=== PATIENT | female | born 1990 | race African-American/Black ===

== ENCOUNTER 2017-03-01 05:30 | Emergency (ER) | payer OTHER, MEDICAID ==
[~2017-03-01] VITALS: Ht 154.9 cm; Wt 65.0 kg
[2017-03-01 05:34] VITALS: BP 133/74; PULSE 83; RESP 16; TEMP 98.2; O2SAT 100
[2017-03-01] MEDS ORDERED: SODIUM CHLOR 0.9% 1000 ML INJ 1,000 ML IV SCH (05:56)
[2017-03-01] MEDS ORDERED: ONDANSETRON HCL 4 MG/2 ML VIAL IVP ONE (06:00)
[2017-03-01] MEDS ORDERED: MORPHINE SULFATE 4 MG/ML INJ IV PUSH ONE ×2 (06:00→07:30)
[2017-03-01] MEDS ORDERED: SODIUM CHLORIDE 0.9% FLUSH 10 ML FLUSH IV FLUSH PRN (06:00)
--- NOTE | 2017-03-01 06:00 | PD ---
HPI Chief Complaint: Abdominal Pain Time Seen by Provider: 05:47 Travel History International Travel<30 days: No Contact w/Intl Traveler<30days: No Traveled to known affect area: No History of Present Illness HPI 26-year-old female complains of abdominal pain with nausea vomiting. Patient states the symptoms started last night. Patient states the pain is severe pain cramping pain localized to the lower abdomen. Patient denies any pain radiation. Patient states that she has nausea vomiting with the pain. Patient denies any fever. Patient denies any dysuria or frequency. Patient denies any vaginal discharge or bleeding. Patient status post gastric bypass surgery a year ago. PFSH Past Medical History Medical History: Denies Significant Hx Tetanus Vaccination: Unknown Influenza Vaccination: No ?: Not LMP: FEB 2017 : 1 Para: 1 Past Surgical History Abdominal Surgery: Yes (GASTRIC BYPASS) Section: Yes Social History Alcohol Use: No Tobacco Use: No Substance Use: No Allergies-Medications (Allergen,Severity, Reaction): Coded Allergies: No Known Allergies (Unverified , 03/01/17) Reported Meds & Prescriptions Reported Meds & Active Scripts Active No Active Prescriptions or Reported Medications Review of Systems General / Constitutional: No: Fever Eyes: No: Visual changes HENT: No: Headaches Cardiovascular: No: Chest Pain or Discomfort Respiratory: No: Shortness of Breath Gastrointestinal: Positive: Nausea, Vomiting, Abdominal Pain Genitourinary: No: Dysuria Musculoskeletal: No: Pain Skin: No Rash Neurologic: No: Weakness Psychiatric: No: Depression Endocrine: No: Polydipsia Hematologic/Lymphatic: No: Easy Bruising Physical Exam Narrative GENERAL: Well-nourished, well-developed patient. SKIN: Focused skin assessment warm/dry. HEAD: Normocephalic. EYES: No scleral icterus. No injection or drainage. NECK: Supple, trachea midline. No JVD or lymphadenopathy. CARDIOVASCULAR: Regular rate and rhythm without murmurs, gallops, or rubs. RESPIRATORY: Breath sounds equal bilaterally. No accessory muscle use. GASTROINTESTINAL: Abdomen soft, nondistended. Patient has moderate tenderness on palpation lower abdomen. No rebound tenderness. No mass. MUSCULOSKELETAL: No cyanosis, or edema. BACK: Nontender without obvious deformity. No CVA tenderness. Neurologic exam normal. Data Data Last Documented VS Vital Signs Date Time Temp Pulse Resp B/P (MAP) Pulse Ox O2 Delivery O2 Flow Rate FiO2 03/01/17 05:34 98.2 83 16 133/74 (93) 100 Room Air Orders Orders Complete Blood Count With Diff (03/01/17 05:56) Comprehensive Metabolic Panel (03/01/17 05:56) Lipase (03/01/17 05:56) Urinalysis - C+S If Indicated (03/01/17 05:56) Ct Abd/Pel W Iv Contrast(Rout) (03/01/17 05:56) Iv Access Insert/Monitor (03/01/17 05:56) Ecg Monitoring (03/01/17 05:56) Oximetry (03/01/17 05:56) Morphine Inj (Morphine Inj) (03/01/17 06:00) Ondansetron Inj (Zofran Inj) (03/01/17 06:00) Sodium Chlor 0.9% 1000 Ml Inj (Ns 1000 M (03/01/17 05:56) Sodium Chloride 0.9% Flush (Ns Flush) (03/01/17 06:00) Ed Urine Pregnancytest Poc (03/01/17 05:56) MDM Medical Decision Making Medical Screen Exam Complete: Yes Emergency Medical Condition: Yes Differential Diagnosis Differential diagnosis including UTI, pyelonephritis, nephrolithiasis, ovarian cyst, ovarian torsion, ectopic , PID. Narrative Course 26-year-old female with low abdominal pain and nausea vomiting. Scripts No Active Prescriptions or Reported Meds Harry Mendez MD Mar 01, 2017 06:00
[2017-03-01 06:14] LABS: AUTOMATED NEUTROPHIL # 1.9 TH/MM3 (1.8-7.7); BASOPHIL % 0.6 % (0.0-2.0); EOSINOPHIL # 0.1 TH/MM3 (0-0.4); EOSINOPHIL % 2.7 % (0.0-4.0); HEMATOCRIT 32.4 % (35.0-46.0); HEMO FLAGS DIFF FINAL; LYMPH % 55.6 % (9.0-44.0); LYMPHOCYTE # 2.9 TH/MM3 (1.0-4.8); MEAN CELL VOLUME 86.6 FL (80.0-100.0); MEAN CORPUSCULAR HEMOGLOBIN 29.3 PG (27.0-34.0); MEAN CORPUSCULAR HGB CONC 33.9 % (32.0-36.0); MONO % 4.5 % (0.0-8.0); NEUT % 36.6 % (16.0-70.0); PLATELET COUNT 296 TH/MM3 (150-450); RED BLOOD COUNT 3.75 MIL/MM3 (4.00-5.30); RED CELL DISTRIBUTION WIDTH 13.6 % (11.6-17.2); WHITE BLOOD COUNT 5.2 TH/MM3 (4.0-11.0)
[2017-03-01 07:03] LABS: BLOOD UREA NITROGEN 7 MG/DL (7-18)
[2017-03-01 07:04] LABS: ALKALINE PHOSPHATASE 91 U/L (45-117); ALT (GPT) 23 U/L (10-53); ANION GAP 6 MEQ/L (5-15); AST (GOT) 15 U/L (15-37); BICARBONATE 26.7 MEQ/L (21.0-32.0); CHLORIDE 107 MEQ/L (98-107); GLOMERULAR FILTRATION RATE 121 ML/MIN (>89); POTASSIUM 3.6 MEQ/L (3.5-5.1); SODIUM (NA) 140 MEQ/L (136-145); TOTAL BILIRUBIN ADULT 0.5 MG/DL (0.2-1.0)
[2017-03-01 07:07] VITALS: BP 109/60; PULSE 71; RESP 18; O2SAT 100
[2017-03-01 07:22] VITALS: O2SAT 100
[2017-03-01] MEDS ORDERED: ONDANSETRON HCL 4 MG/2 ML VIAL IV PUSH ONE (07:30)
[2017-03-01 07:37] LABS: BACTERIA, URINE RARE /hpf; BLOOD, URINE NEG (NEG); COMMENT (UR) CULT NOT INDICATED; CULTURE IF INDICATED CULT NOT INDICATED; GLUCOSE,URINE NEG (NEG); KETONE, URINE NEG (NEG); MUCUS URINE FEW /lpf (OCC); NITRITE,URINE NEG (NEG); SQUAMOUS EPITHELIAL CELL URINE 1 /hpf (0-5); URINE COLOR YELLOW (YELLW/STRAW)
[2017-03-01] MEDS ORDERED: IOHEXOL 350 MG/ML 10 ML VIAL (for RAD DIAG) IVCONTRAST ONE (07:37)
--- NOTE | 2017-03-01 07:53 | RADRPT ---
EXAM DATE/TIME: 03/01/2017 07:33 [facility] COMPARISON: No previous studies available for comparison. INDICATIONS : Lower abdominal pain with nausea and vomiting. IV CONTRAST: 94 cc Omnipaque 350 (iohexol) IV ORAL CONTRAST: No oral contrast ingested. RADIATION DOSE: 6.11 CTDIvol (mGy) MEDICAL HISTORY : None SURGICAL HISTORY : Gastric bypass. section. ENCOUNTER: Initial ACUITY: 1 day PAIN SCALE: 10/10 LOCATION: Bilateral lower quadrant TECHNIQUE: Volumetric scanning of the abdomen and pelvis was performed. Using automated exposure control and ad justment of the mA and/or kV according to patient size, radiation dose was kept as low as reasonably achievable to obtain optimal diagnostic quality images. DICOM format image data is available electro nically for review and comparison. FINDINGS: LOWER LUNGS: The visualized lower lungs are clear. LIVER: Homogeneous density without lesion. There is no dilation of the biliary tree. No calcified gallston es. SPLEEN: Normal size without lesion. PANCREAS: Within normal limits. KIDNEYS: Normal in size and shape. There is a 1.3 cm mass involving the posterior upper pole of the right kidn ey. Hounsfield units are 136. There is no stone or hydronephrosis. ADRENAL GLANDS: Within normal limits. VASCULAR: There is no aortic aneurysm. BOWEL/MESENTERY: Changes consistent with prior gastric bypass surgery. The stomach, small bowel, and colon demonstrate no acute abnormality. There is no free intraperitoneal air or fluid. ABDOMINAL WALL: Within normal limits. RETROPERITONEUM: There is no lymphadenopathy. BLADDER: No wall thickening or mass. REPRODUCTIVE: Small amount of free fluid is seen within the cul-de-sac. The uterus is anteverted. No adnexal masses observed. INGUINAL: There is no lymphadenopathy or hernia. MUSCULOSKELETAL: Within normal limits for patient age. CONCLUSION: 1. No acute abnormality to explain the patient's pain. 2. Small amount of free fluid within the cul-de-sac. 3. 1.3 cm mass involving the right kidney. This is not consistent with a cyst. 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 I cannot exclude other etiologies, however. An outpatient MRI of the kidneys with and without gadolinium is needed to further assess this lesion. Hemal Lan Jr., MD on March 01, 2017 at 7:46 Board Certified Radiologist. This report was verified electronically.
[2017-03-01] MEDS ORDERED: DICYCLOMINE HCL 10 MG CAP PO ONE (08:30)
[2017-03-01] MEDS ORDERED: ZOFR4TAB3 SL (08:58)
--- NOTE | 2017-03-01 08:58 | PD ---
Physical Exam Narrative Patient signed out to me by Dr. Mendez. Please see his documentation for complete details. Briefly, patient is a 26-year-old female status post gastric bypass last year, who comes in complaining of abdominal pain with nausea and vomiting. She says it started last night. She had a normal bowel movement yesterday. She says it started after eating pizza. Exam shows diffuse tenderness to the abdomen, worse on the left side. Abdomen is soft. Data Data Last Documented VS Vital Signs Date Time Temp Pulse Resp B/P (MAP) Pulse Ox O2 Delivery O2 Flow Rate FiO2 03/01/17 07:22 100 Room Air 03/01/17 07:07 71 18 03/01/17 05:34 98.2 Orders Orders Complete Blood Count With Diff (03/01/17 05:56) Comprehensive Metabolic Panel (03/01/17 05:56) Lipase (03/01/17 05:56) Urinalysis - C+S If Indicated (03/01/17 05:56) Ct Abd/Pel W Iv Contrast(Rout) (03/01/17 05:56) Iv Access Insert/Monitor (03/01/17 05:56) Ecg Monitoring (03/01/17 05:56) Oximetry (03/01/17 05:56) Morphine Inj (Morphine Inj) (03/01/17 06:00) Ondansetron Inj (Zofran Inj) (03/01/17 06:00) Sodium Chlor 0.9% 1000 Ml Inj (Ns 1000 M (03/01/17 05:56) Sodium Chloride 0.9% Flush (Ns Flush) (03/01/17 06:00) Ed Urine Pregnancytest Poc (03/01/17 05:56) Morphine Inj (Morphine Inj) (03/01/17 07:30) Ondansetron Inj (Zofran Inj) (03/01/17 07:30) Iohexol 350 Inj (Omnipaque 350 Inj) (03/01/17 07:37) Dicyclomine (Bentyl) (03/01/17 08:30) Labs Laboratory Tests Test 03/01/17 06:05 03/01/17 07:15 White Blood Count 5.2 TH/MM3 Red Blood Count 3.75 MIL/MM3 Hemoglobin 11.0 GM/DL Hematocrit 32.4 % Mean Corpuscular Volume 86.6 FL Mean Corpuscular Hemoglobin 29.3 PG Mean Corpuscular Hemoglobin Concent 33.9 % Red Cell Distribution Width 13.6 % Platelet Count 296 TH/MM3 Mean Platelet Volume 8.3 FL Neutrophils (%) (Auto) 36.6 % Lymphocytes (%) (Auto) 55.6 % Monocytes (%) (Auto) 4.5 % Eosinophils (%) (Auto) 2.7 % Basophils (%) (Auto) 0.6 % Neutrophils # (Auto) 1.9 TH/MM3 Lymphocytes # (Auto) 2.9 TH/MM3 Monocytes # (Auto) 0.2 TH/MM3 Eosinophils # (Auto) 0.1 TH/MM3 Basophils # (Auto) 0.0 TH/MM3 CBC Comment DIFF FINAL Differential Comment Blood Urea Nitrogen 7 MG/DL Creatinine 0.70 MG/DL Random Glucose 125 MG/DL Total Protein 7.8 GM/DL Albumin 3.6 GM/DL Calcium Level 8.4 MG/DL Alkaline Phosphatase 91 U/L Aspartate Amino Transf (AST/SGOT) 15 U/L Alanine Aminotransferase (ALT/SGPT) 23 U/L Total Bilirubin 0.5 MG/DL Sodium Level 140 MEQ/L Potassium Level 3.6 MEQ/L Chloride Level 107 MEQ/L Carbon Dioxide Level 26.7 MEQ/L Anion Gap 6 MEQ/L Estimat Glomerular Filtration Rate 121 ML/MIN Lipase 244 U/L Urine Color YELLOW Urine Turbidity CLEAR Urine pH 6.0 Urine Specific [place] 1.018 Urine Protein TRACE mg/dL Urine Glucose (UA) NEG mg/dL Urine Ketones NEG mg/dL Urine Occult Blood NEG Urine Nitrite NEG Urine Bilirubin NEG Urine Urobilinogen LESS THAN 2.0 MG/DL Urine Leukocyte Esterase NEG Urine RBC LESS THAN 1 /hpf Urine WBC 1 /hpf Urine Squamous Epithelial Cells 1 /hpf Urine Bacteria RARE /hpf Urine Mucus FEW /lpf Microscopic Urinalysis Comment CULT NOT INDICATED MDM Supervised Visit with [facility]: No Narrative Course Labs show no acute abnormalities. CT abdomen and pelvis performed shows a mass on the kidney that requires further workup as an outpatient. Patient informed of these results and advised follow-up for an MRI. She is given morphine and Zofran and reports feeling better. Given a dose of Bentyl. She'll be discharged with a prescription for Zofran. She is advised to drink plenty of fluids. Advised to eat a bland diet. Advised to return to the ED as needed for any worsening symptoms. Diagnosis Primary Impression: Abdominal pain Qualified Codes: R10.30 - Lower abdominal pain, unspecified Additional Impression: Nausea & vomiting Qualified Codes: R11.2 - Nausea with vomiting, unspecified Referrals: [facility] call for appointment Patient Instructions: Abdominal Pain (ED), Acute Nausea and Vomiting (ED), General Instructions Additional Instruction: Follow-up with a primary care doctor. You need to have an MRI done as an outpatient to evaluate a mass on her kidney. Drink plenty of fluids. Eat a bland diet. Return as needed for any worsening symptoms. Scripts Ondansetron Odt (Zofran Odt) 4 Mg Tab 4 MG SL Q6HR Y for Nausea/Vomiting, #12 TAB 0 Refills Prov: Mimi Joseph MD 03/01/17 Disposition: 01 DISCHARGE HOME Condition: Stable Mimi Joseph MD Mar 01, 2017 08:58
[2017-03-01 09:12] VITALS: BP 103/65
== END 2017-03-01 09:25 | disposition home or self-care (01) ==
LOC: NEPC 05:30
DX: R10.30 Lower abdominal pain, unspecified (principal); R11.2 Nausea with vomiting, unspecified; N28.9 Disorder of kidney and ureter, unspecified
CPT/HCPCS: 74177; 80053; 81001; 83690; 84703; 85025; 96361; 96374; 96375; 96376; 99285; J2270; J2405; J7030; Q9967

== ENCOUNTER 2017-05-10 21:29 | Emergency (ER) | payer OTHER, MEDICAID ==
[~2017-05-10] VITALS: Ht 167.6 cm; Wt 55.0 kg
[~2017-05-10 21:29] MED LIST: ZOFR4TAB3 SL
[2017-05-10 21:30] VITALS: BP 115/66; PULSE 101; RESP 16; TEMP 98.5; O2SAT 100
--- NOTE | 2017-05-10 22:08 | PD ---
HPI Chief Complaint: Skin Problem Time Seen by Provider: 22:00 Travel History International Travel<30 days: Yes Contact w/Intl Traveler<30days: Yes Name of Country Traveled to: [place] Traveled to known affect area: No History of Present Illness HPI Examined in the presence of female nurse. 26-year-old female presents for evaluation of right axillary pain and swelling. Symptoms started 2 weeks ago. Throbbing pain, constant, worse with palpation. Denies drainage, fevers or chills. No other complaints. PFSH Past Medical History ?: Not : 1 Para: 1 Past Surgical History Abdominal Surgery: Yes (GASTRIC BYPASS) Section: Yes Social History Alcohol Use: No Tobacco Use: No Substance Use: No Allergies-Medications (Allergen,Severity, Reaction): Coded Allergies: No Known Allergies (Unverified Adverse Reaction, Unknown, 05/10/17) Reported Meds & Prescriptions Reported Meds & Active Scripts Active Keflex (Cephalexin) 500 Mg Capsule 500 Mg PO TID 10 Days Bactrim DS (Sulfamethoxazole-Trimethoprim) 800-160 Mg Tab 1 Tab PO BID Zofran Odt (Ondansetron Odt) 4 Mg Tab 4 Mg SL Q6HR PRN Review of Systems General / Constitutional: No: Fever, Chills Skin: Positive Other (positive for soft tissue swelling, pain. Denies drainage.) Physical Exam Narrative GENERAL: Well-nourished female in no acute distress SKIN: Warm and dry. 2 cm right axillary abscess noted. Associated lymphadenopathy. HEAD: Atraumatic. Normocephalic. EYES: Pupils equal and round. No scleral icterus. No injection or drainage. ENT: No nasal bleeding or discharge. Mucous membranes pink and moist. NECK: Trachea midline. No JVD. CARDIOVASCULAR: Regular rate and rhythm. No murmur appreciated. RESPIRATORY: No accessory muscle use. Clear to auscultation. Breath sounds equal bilaterally. Data Data Last Documented VS Vital Signs Date Time Temp Pulse Resp B/P (MAP) Pulse Ox O2 Delivery O2 Flow Rate FiO2 05/10/17 21:30 98.5 101 16 115/66 (82) 100 Room Air Orders Orders Lidocaine 1% Inj (50 Ml) (Xylocaine 1% I (05/10/17 22:15) Wound Culture And Gram Stain (05/10/17 22:07) [facility] Medical Decision Making Medical Screen Exam Complete: Yes Emergency Medical Condition: Yes Medical Record Reviewed: Yes Differential Diagnosis Axillary abscess, hidradenitis, cyst, lymphadenitis Narrative Course The patient has a right axillary abscess which was drained successfully after verbal consent was obtained. Wound culture performed. Pending culture results the patient is being placed on Bactrim and Keflex. Procedures Procedure Narrative INCISION AND DRAINAGE OF ABSCESS: The area was prepped and was sterilely draped. A subcutaneous wheal of 1% Xylocaine with a total number 6 mL was used to anesthetize the area. The area was properly anesthetized. A number 11 scalpel was used to make a 1 -cm incision across the area of the abscess. Cultures were obtained. The abscess was drained an irrigated with normal saline. Diagnosis Primary Impression: Abscess of right axilla Additional Instructions: Medication as prescribed. Warm compresses several times a day 15 minutes at a time. Follow-up with primary care physician as needed and return for any acutely new or worsening symptoms. Med/Other Pt SpecificInfo: Prescription(s) given Scripts Cephalexin (Keflex) 500 Mg Capsule 500 MG PO TID for Infection for 10 Days, CAP 0 Refills Prov: Rocco Handy MD 05/10/17 Sulfamethoxazole-Trimethoprim (Bactrim DS) 800-160 Mg Tab 1 TAB PO BID for Infection, #20 TAB 0 Refills Prov: Rocco Handy MD 05/10/17 Disposition: 01 DISCHARGE HOME Condition: Stable Franck Wharton May 10, 2017 22:08
[2017-05-10] MEDS ORDERED: LIDOCAINE HCL 1% 50 ML VIAL INFIL ONE (22:15)
[2017-05-10] MEDS ORDERED: BACT800T5 PO (22:36)
[2017-05-10] MEDS ORDERED: CEPH-460 PO (22:36)
== END 2017-05-10 23:07 | disposition home or self-care (01) ==
LOC: NEPD 21:29
DX: L02.411 Cutaneous abscess of right axilla (principal); B95.61 Methicillin susceptible Staphylococcus aureus infection as the cause of diseases classified elsewhere
CPT/HCPCS: 10060; 86403; 87070; 87186; 87205